=== PATIENT | female | born 1975 | race Caucasian/White ===

== ENCOUNTER 2017-01-01 07:09 | Emergency (ER) | payer OTHER ==
[~2017-01-01] VITALS: Ht 180.3 cm; Wt 104.3 kg
[~2017-01-01 07:09] MED LIST: FIORICET 325 MG1 TAB PO; MULTI VITAMINS1 TAB PO; REGLAN10 MG PO; VICODIN 5-3001 EACH PO
[2017-01-01 07:14] VITALS: BP 154/99
--- NOTE | 2017-01-01 07:27 | ED NECK/BACK PAIN COMPLAINT ---
History of Present Illness General Chief Complaint: Low Back Pain/Injury Stated Complaint: PT C/O BACK PAIN CAN'T WALK/SIT Source: patient, family, old records Exam Limitations: no limitations Vital Signs & Intake/Output Vital Signs & Intake/Output Vital Signs Date Time Temp Pulse Resp B/P Pulse O2 O2 Flow FiO2 Ox Delivery Rate 01/01 0714 98.3 84 16 154/99 100 Room Air Allergies Coded Allergies: Penicillins (UNKNOWN 01/01/17) Reconcile Medications Acetaminophen/Butalbital/Caf (Fioricet 325 MG-50 MG-40 MG) 1 TAB TAB 1-2 TAB PO Q6H PRN HEADACHE Cyclobenzaprine HCl 10 MG TABLET 1 TAB PO Q8P PAIN OR SPASM Ibuprofen 600 MG TABLET 1 TAB PO TID PRN PAIN with food Multivitamin (One Daily Multivitamin) 1 EACH TABLET 1 TAB PO DAILY SUPPLEMENT (Reported) Oxycodone HCl/Acetaminophen (Percocet 5-325 MG Tablet) 5 MG-325 MG TABLET 1-2 TAB PO Q6P PRN PAIN Triage Note: PT TO ED FOR R LOWER BACK PAIN, REPORTS SHE WAS PICKING SOMETHING UP YESTERDAY AND FELT A "SHARP PAIN AND IT HASN'T STOPPED" TOOK MOBIC AT HOME WITH NO RELIEF, NO URINARY S/S, NO LOSS OF B/B. Triage Nurses Notes Reviewed? 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 Since then the pain is been constant and increased with movement. There is no radiation into her buttocks or down her leg. The pain is 8 out of 10. The pain is a pulling and aching sensation. Patient has tried meloxicam without relief. Patient denies any incontinence of bowel or bladder. There is no weakness or numbness. Past History Travel History Traveled to [place] past 21 day No Medical History Any Pertinent Medical History? see below for history Neurological: migraine EENT: NONE Cardiovascular: NONE Respiratory: NONE Gastrointestinal: NONE Hepatic: NONE Renal: NONE Musculoskeletal: NONE Psychiatric: NONE Endocrine: NONE History of MRSA: No History of VRE: No History of CDIFF: No Surgical History Surgical History: non-contributory Psychosocial History Who do you live with Family Services at Home None What is your primary language Kazakh Tobacco Use: Never used ETOH Use: denies use Illicit Drug Use: denies illicit drug use Family History Hx Contributory? No Review of Systems Review of Systems Constitutional: Reports: no symptoms. Eyes: Reports: no symptoms. Ears, Nose, Throat, Mouth: Reports: no symptoms. Respiratory: Reports: no symptoms. Cardiovascular: Reports: no symptoms. Gastrointestinal/Abdominal: Reports: no symptoms. Musculoskeletal: Reports: see HPI, back pain. Skin: Reports: no symptoms. Neurological/Psychological: Reports: no symptoms. All Other Systems: Reviewed and Negative Physical Exam Physical Exam General Appearance: well developed/nourished, alert, awake, moderate distress Head: atraumatic, normal appearance Eyes: Bilateral: PERRL, EOMI. Ears, Nose, Throat, Mouth: hearing grossly normal, moist mucous membrane Neck: normal inspection, supple, full range of motion, no midline tenderness Respiratory: normal breath sounds, chest non-tender, no respiratory distress, lungs clear Cardiovascular: regular rate/rhythm, normal peripheral pulses Gastrointestinal: soft, non-tender Back: muscle spasm, no vertebral tenderness Extremities: non-tender, normal range of motion Straight Leg Raising: Right: Negative. Left: Negative. Sensory: Medial Le: L4R, L4L. Top of Foot: 2: L5R, L5L. Sole of Foot: 2: SIR, GERMAN. Motor: Deficit L4 Right: No Deficit L4 Left: No Deficit L5 Right: No Deficit L5 Left: No Deficit S1 Right: No Deficit S1 Right: No DTR: Deficit L4 Left: No Deficit L4 Right: No Deficit S1 Left: No Deficit S1 Right: No Patellar: 3: L4 Right, L4 Left. Achilles: 3: S1 Right, S1 Left. Neurologic/Psych: no motor/sensory deficits, awake, alert, oriented x 3, normal mood/affect, HOLDS ONTO THE WALL FOR SUPPORT WHILE WALKINGECONDARY TO TJE LOW BACK PAIN, NOT BECAUSE OF WEAKNESS. Skin: intact, normal color, warm/dry Progress Differential Diagnosis: herniated disc, myofascial strain, T/L spine injury Plan of Care: Current Medications Sig/Roberto Start time Last Medication Dose Stop Time Status Admin Cyclobenzaprine HCl 0 .STK-MED ONE 01/01 0733 AC (Flexeril 10MG Tab) Cyclobenzaprine HCl 10 MG ONCE ONE 01/01 0730 UNVr (Flexeril 10MG Tab) 01/01 731 Ketorolac 60 MG ONCE ONE 01/01 730 UNVr Tromethamine 01/01 731 (Toradol) Departure Departure Disposition: HOME OR SELF CARE Condition: Stable Clinical Impression Primary Impression: Low back pain Qualifiers: Chronicity: acute Back pain laterality: right Sciatica presence: without sciatica Qualified Code: M54.5 - Low back pain Referrals: LAMONT SUTHERLAND MD (PCP/Family) Additional Instructions: USE MOIST HEAT FOLLOW UP WITH DR. SUTHERLAND RETURN IF SYMPTOMS WORSEN OR FOR ANY CONCERNS Departure Forms: Customer Survey General Discharge Information Prescriptions: Current Visit Scripts Cyclobenzaprine HCl 1 TAB PO Q8P #20 TAB Ibuprofen 1 TAB PO TID PRN PAIN #20 TAB with food Oxycodone HCl/Acetaminophen (Percocet 5-325 MG Tablet) 1-2 TAB PO Q6P PRN PAIN #20 TAB
[2017-01-01] MEDS ORDERED: CYCLOBENZAPRINE10 M1 PO (07:41)
[2017-01-01] MEDS ORDERED: IBUPROFEN600 M1 PO (07:41)
[2017-01-01] MEDS ORDERED: PERCOCET 5-3251 EACH PO (07:41)
== END 2017-01-01 08:29 ==
LOC: ERH 07:09
DX: M54.5 Low back pain (principal)
CPT/HCPCS: 96372; J1885